=== PATIENT | female | born 1990 | race Caucasian/White ===

== ENCOUNTER 2018-05-14 21:40 | Emergency (ER) | payer OTHER ==
[2018-05-14 22:47] VITALS: BP 124/82
[2018-05-14] MEDS ORDERED: predniSONE 20 MG TABLET PO STA (22:53)
--- NOTE | 2018-05-14 22:58 | ED Physician Documentation ---
History of Present Illness - Stated complaint Stated Complaint: NO FEELING ON LT THIGH - Chief complaint Chief Complaint: Ext Problem - History obtained from History obtained from: Patient - History of Present Illness Timing: Today (She has chronic back issues and noticed that her left thigh was numb tonight. She has had slightly increased back pain lately. No saddle anesthesia or fevers.) Review of Systems Constitutional: denies: Fever, Chills Respiratory: reports: Reviewed and negative GI: reports: Reviewed and negative : reports: Reviewed and negative PD PAST MEDICAL HISTORY - Past Medical History Musculoskeletal: Chronic back pain - Past Surgical History Past Surgical History: Yes Ortho: Knee replacement, Other - Present Medications Home Medications: Ambulatory Orders Medication Instructions Recorded Confirmed predniSONE [Deltasone] 20 mg PO [id number] #21 tab 05/14/18 - Allergies Allergies/Adverse Reactions: Allergies Allergy/AdvReac Type Severity Reaction Status Date / Time No Known Drug Allergies Allergy Verified 05/14/18 22:31 - Social History Does the pt smoke?: No Smoking Status: Never smoker Does the pt drink ETOH?: Yes Does the pt have substance abuse?: No - Immunizations Immunizations are current?: Yes - POLST Patient has POLST: No PD ED PE NORMAL - Vitals Vital signs reviewed: Yes - General General: Alert and oriented X 3, No acute distress - Abdomen Abdomen: Normal bowel sounds, Soft, Non tender - Extremities Extremities: Other (She has diminished sensation over the anterolateral left thigh which is too extensive to be due to meralgia paresthetica. She has equal bilateral patellar and Achilles reflexes and below the knee her sensation is normal.) - Neuro Neuro: Alert and oriented X 3, Normal speech Results - Vitals Vitals: Vital Signs - 24 hr 05/14/18 05/14/18 21:58 22:46 Temperature 36.3 C L 37.1 C Heart Rate 58 L 55 L Respiratory 16 12 Rate Blood Pressure 121/67 124/82 H O2 Saturation 98 99 Oxygen O2 Source Room air PD MEDICAL DECISION MAKING - Sepsis Event Vital Signs: Vital Signs - 24 hr 05/14/18 05/14/18 21:58 22:46 Temperature 36.3 C L 37.1 C Heart Rate 58 L 55 L Respiratory 16 12 Rate Blood Pressure 121/67 124/82 H O2 Saturation 98 99 Oxygen O2 Source Room air Departure - Departure Disposition: 01 Home, Self Care Clinical Impression: Lumbar radiculopathy, acute Condition: Good Record reviewed to determine appropriate education?: Yes Instructions: Lumbar Radiculopathy Prescriptions: predniSONE [Deltasone] 20 mg PO [id number] #21 tab Comments: Call your doctor to arrange a follow-up appointment, make the next available appointment. In the interim, return anytime if worse or if new symptoms develop. Your blood pressure was elevated today on check into the emergency department. This does not mean that you have hypertension, it is a common phenomenon to come to the emergency department and have elevated blood pressure. I recommend that you see your primary care physician within the week to have it rechecked when you are feeling better.
== END 2018-05-14 23:01 | disposition home or self-care (01) ==
LOC: ED 21:40
DX: M54.16 Radiculopathy, lumbar region (principal)
CPT/HCPCS: 99283; J7512

== ENCOUNTER 2018-05-25 21:20 | Emergency (ER) | payer OTHER ==
--- NOTE | 2018-05-25 21:32 | ED Physician Documentation ---
PD HPI TRUNK INJURY - Stated complaint Stated Complaint: SIDE PX/FALL - Chief complaint Chief Complaint: Back Pain - History obtained from History obtained from: Patient - History of Present Illness Location: Anterior chest, Upper abdomen Type of injury: Blunt / blow (She was swinging on an obstacle course rope and was supposed to swing legs up to a platform, but missed and struck anterior lower chest into the edge of the platform horizontally. Pain and tenderness locally across the lowest ribs. No pain into the back.) Timing - onset: Today Timing - duration: Hours Timing - details: Abrupt onset, Still present Quality: Pain Improved by: Rest Worsened by: Moving, Palpating Associated symtptoms: No: Weakness Where injury occured: Work Similar symptoms before: Has not had sx before Recently seen: Emergency Dept (for back pain with leg numbness considered likely lumbar radiculitis. Rx with decadron short course.) Review of Systems Constitutional: denies: Fever, Chills Cardiac: reports: Chest pain / pressure. denies: Palpitations Respiratory: denies: Dyspnea GI: reports: Abdominal Pain (upper abd/lowest ribs area), Nausea, Vomiting Skin: denies: Rash, Abrasion (s), Laceration (s) Neurologic: denies: Generalized weakness, Near syncope PD PAST MEDICAL HISTORY - Past Medical History Cardiovascular: None Respiratory: None Neuro: None Endocrine/Autoimmune: None Musculoskeletal: Chronic back pain - Past Surgical History Past Surgical History: Yes Ortho: Knee replacement, Other - Present Medications Home Medications: Ambulatory Orders Medication Instructions Recorded Confirmed predniSONE [Deltasone] 20 mg PO [id number] #21 tab 05/14/18 Naproxen 375 mg PO BID #20 tablet 05/25/18 Oxycodone HCl/Acetaminophen 1 each PO Q6H PRN #20 tablet 05/25/18 [Percocet 5-325 mg Tablet] - Allergies Allergies/Adverse Reactions: Allergies Allergy/AdvReac Type Severity Reaction Status Date / Time No Known Drug Allergies Allergy Verified 05/25/18 21:28 - Social History Does the pt smoke?: No Smoking Status: Never smoker Does the pt drink ETOH?: Yes Does the pt have substance abuse?: No - Immunizations Immunizations are current?: Yes - POLST Patient has POLST: No PD ED PE NORMAL - Vitals Vital signs reviewed: Yes - General General: Alert and oriented X 3, Well developed/nourished, Other (appears uncomfortable with movement of trunk and bending at waist, causing pain lowest ribs area. Somewhat splinted breathing. ) - HEENT HEENT: Atraumatic - Neck Neck: Supple, no meningeal sign, No bony TTP, No adenopathy - Cardiac Cardiac: RRR, No murmur - Respiratory Respiratory: Clear bilaterally, Other (significant tenderness across lower chest at level of lowest costochondral area. No obvious crepitance. Abdomen itself is not tender, but palpation upper left abd causes some pain in left lower chest. No free fluid seen on bedside U/S. ) - Abdomen Abdomen: Normal bowel sounds, Soft, Non distended, No organomegaly - Derm Derm: Normal color, Warm and dry - Extremities Extremities: No deformity, No tenderness to palpate, Normal ROM s pain - Neuro Neuro: Alert and oriented X 3, No motor deficit, Normal speech Results - Vitals Vitals: Vital Signs - 24 hr 05/25/18 21:24 Temperature 36.8 C Heart Rate 76 Respiratory 18 Rate Blood Pressure 126/71 O2 Saturation 100 Oxygen O2 Source Room air - Rads (name of study) abd Radiology: Prelim report reviewed (no fractures nor organ injuries. ) PD MEDICAL DECISION MAKING - ED course Complexity details: reviewed results (no fractures nor organ injury), re- evaluated patient, considered differential (injury is at lowest ribs anteriorly and does not have pain in upper chest. My main concern would be for organ injury upper abd, and so CT abd done. This will evaluate lowest ribs and lung matos as well, rather than dedicated chest CT. ), d/w patient - Sepsis Event Vital Signs: Vital Signs - 24 hr 05/25/18 21:24 Temperature 36.8 C Heart Rate 76 Respiratory 18 Rate Blood Pressure 126/71 O2 Saturation 100 Oxygen O2 Source Room air Departure - Departure Disposition: 01 Home, Self Care Clinical Impression: Chest wall contusion Qualifiers: Encounter type: initial encounter Laterality: unspecified laterality Qualified Code(s): S20.219A - Contusion of unspecified front wall of thorax, initial encounter Condition: Stable Record reviewed to determine appropriate education?: Yes Instructions: ED Contusion Chest Wall Follow-Up: SVITLANA JARAMILLO III, MD [Primary Care Provider] - Prescriptions: Naproxen 375 mg PO BID #20 tablet Oxycodone HCl/Acetaminophen [Percocet 5-325 mg Tablet] 1 each PO Q6H PRN #20 tablet PRN Reason: Pain Comments: No signs of fractures of ribs nor organ injuries on CT scan. You will still be pretty sore for several days at least. Rest for 1-2 days, and follow up with PCP/Clinic. Naproxen twice daily for a week, with food. Add Tylenol or Oxycodone as needed for pains. Forms: Activity restrictions
[2018-05-25] MEDS ORDERED: SODIUM CHLORIDE 0.9% 1,000 ML IV ONE (21:50)
[2018-05-25] MEDS ORDERED: KETOROLAC 60 MG/2 ML VIAL IVP STA (21:53)
[2018-05-25] MEDS ORDERED: ONDANSETRON 4 MG/2 ML VIAL IVP STA (21:53)
[2018-05-25] MEDS ORDERED: MORPHINE 2 MG/ML CARPUJECT IVP STA ×2 (21:53→23:53)
[2018-05-25] MEDS ORDERED: IOPAMIDOL-300 50 ML VIAL ONE (22:01)
[2018-05-25] MEDS ORDERED: IOPAMIDOL-300 100 ML VIAL ONE (22:02)
[2018-05-25] MEDS ORDERED: IOPAMIDOL-300 100 ML VIAL IVP ONE (23:30)
--- NOTE | 2018-05-25 23:43 | CT Report ---
Reason: direct injury upper abd/lower chest Procedure Date: 05/25/2018 Accession Number: [id number] / [id number] Procedure: CT - Abdomen/Pelvis W/ CPT Code: FULL RESULT: EXAM: CT ABDOMEN AND PELVIS EXAM DATE: 05/25/2018 11:29 PM. CLINICAL HISTORY: Pain after injury. COMPARISONS: None. TECHNIQUE: Routine helical CT imaging was performed through the abdomen and pelvis. IV contrast: 100 ML ISOVUE 300. Enteric contrast: No. Reconstructions: Coronal and sagittal. In accordance with CT protocol optimization, one or more of the following dose reduction techniques were utilized for this exam: automated exposure control, adjustment of mA and/or KV based on patient size, or use of iterative reconstructive technique. FINDINGS: Lung Bases: Mild bilateral atelectasis. Liver: No focal abnormality seen. Gallbladder/Bile Ducts: Unremarkable. Spleen: Normal. Pancreas: Normal. Adrenal Glands: Normal. Kidneys: Normal. No masses or hydronephrosis. Peritoneal Cavity/Bowel: No bowel obstruction or acute bowel injury identified. Moderate stool in the colon. No free air or free fluid. No diverticulitis. No lymphadenopathy. Appendix is partially seen and visualized portions appear normal. Pelvic Organs: IUD in expected position. Visualized pelvic organs are unremarkable. Vasculature: No aneurysms or other significant abnormality. Bones: No significant abnormality. Other: None. IMPRESSION: 1. No acute posttraumatic findings are seen in the abdomen or pelvis. 2. No acute inflammatory or obstructive process identified. RADIA
[2018-05-25] MEDS ORDERED: oxyCODONE/ACET 5/325 Prepack 4 PO STA (23:53)
[2018-05-26 00:07] VITALS: BP 101/64
== END 2018-05-26 00:24 | disposition home or self-care (01) ==
LOC: ED 21:20
DX: S20.219A Contusion of unspecified front wall of thorax, initial encounter (principal); W22.09XA Striking against other stationary object, initial encounter; Y93.79 Activity, other specified sports and athletics
CPT/HCPCS: 74177; 96361; 96374; 96376; 99283; Q9967

== ENCOUNTER 2018-09-23 23:40 | Emergency (ER) | payer OTHER ==
--- NOTE | 2018-09-24 00:40 | ED Physician Documentation ---
PD HPI OPHTHO - Stated complaint Stated Complaint: BRAIN EYE BLEEDING - Chief complaint Chief Complaint: Heent - History obtained from History obtained from: Patient - History of Present Illness Timing - onset: Today Pain level max: 0 Pain level now: 0 Location: Both Associated symptoms: Redness Similar symptoms before: Has not had sx before Recently seen: Not recently seen - Additional information Additional information: patient noticed redness both eyes this evening. this was noticed incidentally when looking in mirror; she is asymptomatic and denies trauma, recent unusually strenuous activity, and does not recall coughing or sneezing today. she thinks her eyes might be a little yellow as well. denies regular, heavy, or recent acetaminophen or alcohol use. 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 : None HEENT: None Psych: None Musculoskeletal: Chronic back pain Derm: None - Past Surgical History Past Surgical History: Yes Ortho: Knee replacement, Other - Present Medications Home Medications: Ambulatory Orders Medication Instructions Recorded Confirmed predniSONE [Deltasone] 20 mg PO [id number] #21 tab 05/14/18 Naproxen 375 mg PO BID #20 tablet 05/25/18 Oxycodone HCl/Acetaminophen 1 each PO Q6H PRN #20 tablet 05/25/18 [Percocet 5-325 mg Tablet] - Allergies Allergies/Adverse Reactions: Allergies Allergy/AdvReac Type Severity Reaction Status Date / Time No Known Drug Allergies Allergy Verified 09/23/18 23:50 - Social History Does the pt smoke?: No Smoking Status: Never smoker Does the pt drink ETOH?: Yes Does the pt have substance abuse?: No - Immunizations Immunizations are current?: Yes - POLST Patient has POLST: No PD ED PE NORMAL - Vitals Vital signs reviewed: Yes - General General: Alert and oriented X 3, No acute distress, Well developed/nourished - HEENT HEENT: PERRL, EOMI, Moist mucous membranes PD ED PE EXPANDED - HEENT HEENT Visual: 1 - bruising (Small, flat subconjunctival hemorrhage) 2 - bruising (Small, flat subconjunctival hemorrhage (under the lid in diagram); there is a larger area surrounding the subconjunctival hemorrhage of confluent red/purple discoloration) Results - Vitals Vitals: Vital Signs - 24 hr 09/23/18 09/24/18 09/24/18 23:49 00:03 01:53 Temperature 36.3 C L Heart Rate 50 L 62 65 Respiratory 16 18 Rate Blood Pressure 124/70 112/76 128/65 O2 Saturation 98 98 100 Oxygen O2 Source Room air - Labs Labs: Laboratory Tests 09/24/18 09/24/18 01:00 01:00 WBC 6.4 RBC 4.36 Hgb 14.1 Hct 41.0 MCV 94.1 MCH 32.4 H MCHC 34.5 RDW 12.2 Plt Count 167 MPV 10.2 Neut # (Auto) 3.0 Lymph # (Auto) 2.7 [place] # (Auto) 0.4 Eos # (Auto) 0.3 Baso # (Auto) 0.1 Absolute Nucleated RBC 0.00 Nucleated RBC % 0.1 Sodium 137 Potassium 4.0 Chloride 105 Carbon Dioxide 24 Anion Gap 8.0 BUN 12 Creatinine 0.8 Estimated GFR (MDRD) 84 L Glucose 102 H Calcium 9.0 Total Bilirubin 0.3 AST 18 ALT 22 Alkaline Phosphatase 45 Total Protein 6.4 L Albumin 3.9 Globulin 2.5 Albumin/Globulin Ratio 1.6 Lipase 38 PD MEDICAL DECISION MAKING - ED course Complexity details: reviewed results, re-evaluated patient, considered differential, d/w patient ED course: Blood work ordered because 1) unusual for subconctival hemorrhage to present bilaterally, particularly without apparent precipitating factor such as cough and 2) patient expressed concern that her eyes also looked slightly yellow. These factors raised concern for liver pathology with concomitant bleeding aranda thesis; however, blood test results are unremarkable. I encouraged her to f/u to ensure the lesions clear, particularly discoloration surrounding the subconjunctival hemorrhage in the left eye, which could represent an adjacent area of less recent bleeding (and thus the disparity in color compared to the smaller area of bright red bleeding) Departure - Departure Disposition: 01 Home, Self Care Clinical Impression: Subconjunctival hemorrhage of both eyes Condition: Good Instructions: ED Eye Injury Subconj Hemorrhage Follow-Up: SVITLANA JARAMILLO III, MD [Primary Care Provider] - Discharge Date/Time: 09/24/18 01:54
[2018-09-24 01:17] LABS: BASOPHILS # (AUTO) 0.1 10^3/uL (0.0-0.1); BASOPHILS % (AUTO) 0.9 %; EOSINOPHILS # (AUTO) 0.3 10^3/uL (0.0-0.7); EOSINOPHILS % (AUTO) 4.7 %; HGB - HEMOGLOBIN 14.1 g/dL (12.0-16.0); LYMPHOCYTES # (AUTO) 2.7 10^3/uL (1.5-3.5); LYMPHOCYTES % (AUTO) 41.9 %; MEAN CORPUSCULAR HEMOGLOBIN 32.4 pg (27.0-31.0); MEAN CORPUSCULAR HGB CONC 34.5 g/dL (32.0-36.0); MEAN CORPUSCULAR VOLUME 94.1 fL (81.0-99.0); MEAN PLATELET VOLUME 10.2 fL (7.9-10.8); MONOCYTES # (AUTO) 0.4 10^3/uL (0.0-1.0); MONOCYTES % (AUTO) 5.7 %; NEUTROPHILS % (AUTO) 46.8 %; PLT - PLATELET COUNT 167 10^3/uL (130-450); RED BLOOD COUNT 4.36 10^6/uL (4.20-5.40); RED CELL DISTRIBUTION WIDTH 12.2 % (12.0-15.0); WHITE BLOOD COUNT 6.4 x10^3/uL (4.8-10.8)
[2018-09-24 01:24] LABS: ALBUMIN 3.9 g/dL (3.2-5.5); ALBUMIN/GLOBULIN RATIO 1.6 (1.0-2.2); BILIRUBIN,TOTAL 0.3 mg/dL (0.2-1.0); CREATININE 0.8 mg/dL (0.4-1.0); TOTAL PROTEIN 6.4 g/dL (6.7-8.2)
[2018-09-24 01:54] VITALS: BP 128/65
== END 2018-09-24 01:54 | disposition home or self-care (01) ==
LOC: ED 23:40
DX: H11.33 Conjunctival hemorrhage, bilateral (principal); Z96.659 Presence of unspecified artificial knee joint
CPT/HCPCS: 36415; 80053; 83690; 85025; 99282; 99283

== ENCOUNTER 2020-07-12 19:39 | Emergency (ER) | payer OTHER ==
--- NOTE | 2020-07-12 20:37 | ED Physician Documentation ---
PD HPI SKIN - Stated complaint Stated Complaint: RASH - Chief complaint Chief Complaint: Wound - History obtained from History obtained from: Patient - History of Present Illness Timing - onset: How many weeks ago (1) Timing - duration: Weeks (1) Timing - details: Gradual onset (initially chest and axillary areas. Has spread to torso and now whole body. Itchy, bumpy to welts. No vesicles. Has been seen by [facility] and tried topical steroid on chest when just there, along with Benadryl. Then antifungal added. Worsened to whole body. No new foods, meds, soaps, exposures.), Still present Location: Bodywide Quality / character: Itchy, Raised. No: Vesicular, Draining Improved by: No: Benadryl, Steroid cream Associated symptoms: No: Fever, Facial swelling, Dyspnea, N/V/D Contributing factors: Other (has not taken Ibuprofen for month or more. Has IUD in place for couple of years.). 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 HEENT: None Psych: None Musculoskeletal: Chronic back pain Derm: None - Past Surgical History Past Surgical History: Yes Ortho: Knee replacement, Other - Present Medications Home Medications: Ambulatory Orders Medication Instructions Recorded Confirmed predniSONE [Deltasone] 20 mg PO [id number] #21 tab 05/14/18 Naproxen 375 mg PO BID #20 tablet 05/25/18 Oxycodone HCl/Acetaminophen 1 each PO Q6H PRN #20 tablet 05/25/18 [Percocet 5-325 mg Tablet] Cetirizine [ZyrTEC] 10 mg PO BID #15 tablet 07/12/20 Famotidine [Pepcid] 20 mg PO DAILY #7 tablet 07/12/20 dexAMETHasone [Decadron] 4 mg PO DAILY #7 tablet 07/12/20 - Allergies Allergies/Adverse Reactions: Allergies Allergy/AdvReac Type Severity Reaction Status Date / Time No Known Drug Allergies Allergy Verified 07/12/20 19:52 - Social History Does the pt smoke?: No Smoking Status: Never smoker Does the pt drink ETOH?: Yes Does the pt have substance abuse?: No - Immunizations Immunizations are current?: Yes - POLST Patient has POLST: No PD ED PE NORMAL - Vitals Vital signs reviewed: Yes - General General: Alert and oriented X 3, No acute distress (seems uncomfortable due to itchiness. ), Well developed/nourished - HEENT HEENT: Pharynx benign - Neck Neck: Supple, no meningeal sign, No adenopathy - Cardiac Cardiac: RRR, No murmur - Respiratory Respiratory: Clear bilaterally - Derm Derm: Normal color, Warm and dry, Other (diffuse patchy raised flat to bumpy rash without vesicles. c/w hives. ) Results - Vitals Vitals: Vital Signs - 24 hr 07/12/20 07/12/20 07/12/20 19:46 20:55 21:25 Temperature 37.0 C Heart Rate 72 58 L Respiratory 14 16 16 Rate Blood Pressure 131/81 H 114/72 O2 Saturation 98 97 Oxygen O2 Source Room air PD MEDICAL DECISION MAKING - ED course Complexity details: considered differential (unclear the trigger for the all ergic reaction. Has been going a week. No new exposures per pt. Will give oral steroids and I think that will help. To expand antihistamines to reduce symptoms better. ), d/w patient Departure - Departure Disposition: 01 Home, Self Care Clinical Impression: Acute urticaria Condition: Stable Record reviewed to determine appropriate education?: Yes Instructions: ED Urticaria Follow-Up: [facility] [Provider Group] Prescriptions: dexAMETHasone [Decadron] 4 mg PO DAILY #7 tablet Famotidine [Pepcid] 20 mg PO DAILY #7 tablet Cetirizine [ZyrTEC] 10 mg PO BID #15 tablet Comments: This sounds like an allergic reaction but it is not clear what it is to. Is not unusual to not be able to identify the source of an allergic reaction a third or half the time. Typically they will improve with oral steroids and antihistamines and not recur. Use the Decadron steroid daily for a week. Use a combination of long-acting antihistamine cetirizine and famotidine as prescribed for a week and add Benadryl every 4-6 hours if needed for itchiness. I would anticipate tapering and improvement over the next day or 2 and resolution within a few days. If this is not completely resolved over several days and last longer or if it recurs again in the near future, it may warrant allergy testing to see what he may be having ongoing sensitivity to. If it resolves and does not come back then no further testing needed. Discharge Date/Time: 07/12/20 21:40
[2020-07-12] MEDS ORDERED: CHERRY SYRUP 10 ML UDC PO ONE (21:13)
[2020-07-12] MEDS ORDERED: DEXAMETHASONE 10 MG/ML VIAL PO STA (21:13)
[2020-07-12] MEDS ORDERED: FAMOTIDINE 20 MG TABLET PO STA (21:13)
[2020-07-12] MEDS ORDERED: CETIRIZINE 10 MG TABLET PO STA (21:13)
[2020-07-12] MEDS ORDERED: diphenhydrAMINE 25 MG CAPSULE PO STA (21:13)
[2020-07-12 21:25] VITALS: BP 114/72
== END 2020-07-12 21:40 | disposition home or self-care (01) ==
LOC: ED 19:39
DX: L50.0 Allergic urticaria (principal)
CPT/HCPCS: 99283; 99284; A9270

== ENCOUNTER 2021-09-14 08:01 | Outpatient (CLI) | payer OTHER ==
--- NOTE | 2021-09-14 11:45 | MRI Report ---
PROCEDURE: Shoulder LT W/O INDICATIONS: PAIN IN SHOULDER, DORSALGIA TECHNIQUE: Noncontrast oblique coronal T2 fast spin echo with fat saturation, oblique sagittal T1 spin echo and T2 fast spin echo with fat saturation, axial T1 spin echo and T2 fast spin echo with fat saturation t hrough the shoulder. COMPARISON: None. FINDINGS: Image quality: Excellent. Rotator cuff: The supraspinatus, infraspinatus, and subscapularis tendons appear intact throughout. No rotator cuff muscle atrophy on sagittal images. Bones and bursae: No bone marrow contusions or fractures. Mild acromioclavicular joint degeneration. The acromion demonstrates conventional anatomy, without an os acromiale. No pathologic subacromial /subdeltoid bursal fluid is present. Capsule and soft tissues: There is diffuse tearing of the posterior labrum with intralabral and para labral cysts posteriorly. The long head of the biceps tendon demonstrates normal location and morphol ogy. The rotator interval appears normal, without fibrosis. The coracohumeral ligament is normal in thickness. IMPRESSION: 1. No evidence of rotator cuff tear. 2. Posterior labral tearing. 3. Mild acromioclavicular joint osteoarthritis. Reviewed by: Aleksandra Sal MD on 09/14/2021 11:44 AM PST Approved by: Aleksandra Sal MD on 09/14/2021 11:44 AM PST Station ID: [id number]
--- NOTE | 2021-09-14 12:10 | MRI Report ---
PROCEDURE: Lumbar Spine W/O INDICATIONS: Back pain TECHNIQUE: Noncontrast sagittal T1 spin echo and T2 fast echo, sagittal STIR, axial T1 and T2 fast spin echo thr ough the lumbar spine. In cases with scoliosis, additional coronal T2 fast spin echo may be performe d. COMPARISON: None. FINDINGS: Image quality: Excellent. Alignment and Curvature: There is normal bony alignment. Bone Marrow: Marrow is of normal overall signal. No acute vertebral body compression fractures. Spinal Cord: Conus medullaris terminates at the normal level. Visualized cord demonstrates normal s ignal and size. Paraspinous Soft Tissues: No paravertebral masses. T12-L1: Normal in appearance. L1-L2: Normal in appearance. L2-L3: Normal in appearance. L3-L4: Normal in appearance. L4-L5: Disc desiccation and disc height loss. Diffuse disc bulge with a superimposed broad-based po sterior disc protrusion which flattens and indents the ventral thecal sac. Mild displacement of the d escending left L5 nerve roots in the left subarticular zone. Foraminal component of the disc protrusi on produces mild neural foraminal narrowing on the left. L5-S1: Normal in appearance. IMPRESSION: Mild degenerative changes at L4-L5 with no evidence of focal nerve root impingement. Reviewed by: David Roberson MD on 09/14/2021 11:09 AM [facility] Approved by: David Roberson MD on 09/14/2021 11:09 AM [facility] Station ID: [id number]
== END 2021-09-14 08:02 | disposition home or self-care (01) ==
LOC: DI 08:01
PROVIDERS: ATTEND Student in an Organized Health Care Education/Training Program
DX: S43.492A Other sprain of left shoulder joint, initial encounter (principal); M19.012 Primary osteoarthritis, left shoulder; M51.26 Other intervertebral disc displacement, lumbar region; M51.36 Other intervertebral disc degeneration, lumbar region; M48.061 Spinal stenosis, lumbar region without neurogenic claudication

== ENCOUNTER 2021-11-21 10:16 | Emergency (ER) | payer OTHER ==
[2021-11-21 10:28] VITALS: BP 132/90
--- NOTE | 2021-11-21 11:16 | ED Physician Documentation ---
PD HPI UPPER EXT INJURY - Stated complaint Stated Complaint: L SHOULDER PX - Chief complaint Chief Complaint: Ext Problem - History obtained from History obtained from: Patient - History of Present Illness Location: Left, Shoulder Where injury occurred: Home (she had surgery left shoulder 3 weeks ago for labral repair and rotator cuff, and is in sling with minimal use, but is moving so having to use right arm/hand and some lifting, which has caused just some mild movement of left shoulder and having increased pain. No signs of wound infections.) Timing - onset: How many weeks ago (had surgery 3 weeks ago so post operative pain, which was worst the first week. Now increased again the past 2-3 days.) Timing - details: Gradual onset, Still present Recently seen: Surgery (3 weeks ago) Review of Systems Constitutional: denies: Fever, Chills Skin: denies: Rash, Lesions Neurologic: denies: Focal weakness, Numbness PD PAST MEDICAL HISTORY - Past Medical History Cardiovascular: None Respiratory: None Neuro: None Endocrine/Autoimmune: None GI: None SURGERY SCHEDULER: None : None HEENT: None Psych: None Musculoskeletal: Chronic back pain Derm: None - Past Surgical History Past Surgical History: Yes Ortho: Knee replacement, Other - Present Medications Home Medications: Ambulatory Orders Medication Instructions Recorded Confirmed Acetaminophen [Acetaminophen Extra 500 mg PO QID PRN #50 tablet 11/21/21 Strength] Dextroamphetamine/Amphetamine 20 mg PO DAILY 11/21/21 11/21/21 [Dextroamp-Amphetamine 5 mg Tab] Meloxicam [Mobic] 7.5 mg PO BID 10 Days #20 tablet 11/21/21 Spironolactone [Aldactone] 25 mg PO BID 11/21/21 11/21/21 oxyCODONE [Roxicodone] 5 mg PO Q6H PRN #20 tablet 11/21/21 - Allergies Allergies/Adverse Reactions: Allergies Allergy/AdvReac Type Severity Reaction Status Date / Time No Known Drug Allergies Allergy Verified 11/21/21 10:24 - Social History Does the pt smoke?: No Smoking Status: Never smoker Does the pt drink ETOH?: Yes Does the pt have substance abuse?: No - Immunizations Immunizations are current?: Yes - POLST Patient has POLST: No PD ED PE NORMAL - Vitals Vital signs reviewed: Yes - General General: Alert and oriented X 3, Well developed/nourished, Other (appears in pain due to shoulder) - Neck Neck: No adenopathy - Derm Derm: Normal color, Warm and dry, Other (surgical scope sites on shoulder are wi thout signs of infection. She has shoulder in immobilizer with guarded ROM. ) Results - Vitals Vitals: Oxygen O2 Source Room air - Rads (name of study) left shoulder Radiology: Prelim report reviewed (no acute appearance. ), See rad report PD MEDICAL DECISION MAKING - ED course Complexity details: reviewed results, considered differential (post operative 3 weeks without signs of infection. Incidental mild movement of shoulder as she is trying to pack household for moving in few weeks, using other arm and doing some one armed lifting,etc. Having reasonably increased postop pain. ), d/w patient Departure - Departure Disposition: 01 Home, Self Care Clinical Impression: Acute postoperative pain of left shoulder Condition: Stable Record reviewed to determine appropriate education?: Yes Follow-Up: SAM SHETTY MD [Primary Care Provider] - Eddie Arango MD [Provider Admit Priv/Credential] - Prescriptions: Acetaminophen [Acetaminophen Extra Strength] 500 mg PO QID PRN #50 tablet PRN Reason: Pain Meloxicam [Mobic] 7.5 mg PO BID 10 Days #20 tablet oxyCODONE [Roxicodone] 5 mg PO Q6H PRN #20 tablet PRN Reason: Pain Comments: You wounds appear good without signs of infection. Your x-ray shows normal positioning of the bones. Obviously disc does not show the soft tissue in there. It is reasonable to have postoperative pain especially if you are having increased incidental use of the shoulder. Continue with the shoulder immobilizer and guidelines provided by orthopedic surgeon. Add anti-inflammatory meloxicam twice daily with food for the next 7 to 10 days. To that add acetaminophen 4 times daily regularly for the next few days and then as needed for pain. To that add oxycodone every 6 hours if needed for worse pain. Follow-up with your orthopedist if persisting at a higher pain level. I transmitted your prescriptions to [facility] pharmacy in [place]. I am prescribing a short course of narcotic pain medication for you. These are potentially dangerous and addictive medications that should be used carefully. These medications may constipate you. Take an zncl-aik-iyihwyz stool softener such as docusate twice daily with plenty of water while taking these medications. If you go 24 hours without a bowel movement, take mkwx-oee-soojlax MiraLAX, per package instructions. Do not drink or drive while taking these medications. If you received narcotic or sedating medications while in the emergency department do not drive for 24 hours. Store this medication in a safe, secure place and out of reach of children. It is a violation of federal law to give or sell this medication to another person or to use in a manner other than prescribed. The ED will not refill narcotic prescriptions, including prescriptions lost or stolen. You can dispose of unwanted medications at the [facility]'s office or at several pharmacies such as [facility]. Discharge Date/Time: 11/21/21 12:19
[2021-11-21] MEDS ORDERED: IBUPROFEN 600 MG TABLET PO STA (11:29)
[2021-11-21] MEDS ORDERED: oxyCODONE 5 MG TABLET PO STA (11:29)
--- NOTE | 2021-11-21 11:57 | XRAY Report ---
PROCEDURE: Shoulder 2 View LT INDICATIONS: increased shoulder pain; 3 wk post op TECHNIQUE: 2 views of the shoulder were acquired. COMPARISON: Reference is made to the MRI shoulder dated September 14, 2021 FINDINGS: BONES: No acute, displaced fracture. The joint spaces are maintained. SOFT TISSUES: No focal abnormality or appreciable pneumothorax. IMPRESSION: 1.No acute osseous abnormality. Reviewed by: Elias Peñaloza MD on 11/21/2021 11:55 AM PDT Approved by: Elias Peñaloza MD on 11/21/2021 11:55 AM PDT Station ID: [id number]
== END 2021-11-21 12:19 | disposition home or self-care (01) ==
LOC: ED 10:16
DX: G89.18 Other acute postprocedural pain (principal); M25.512 Pain in left shoulder
CPT/HCPCS: 73030; 99282; 99283; A9270